=== PATIENT | female | born 2000 | race Caucasian/White ===

== ENCOUNTER 2018-11-16 21:03 | Emergency (ER) | payer OTHER ==
[2018-11-16 21:12] VITALS: BP 122/66; PULSE 100; TEMP 98; BMI 31.6
--- NOTE | 2018-11-16 21:46 | PDOC ---
History of Present Illness - General Chief Complaint: Allergic Reaction Stated Complaint: ALLERGIC REACTION Time Seen by Provider: 11/16/18 21:38 Past History - Past Medical History Allergies/Adverse Reactions: Allergies Allergy/AdvReac Type Severity Reaction Status Date / Time Fish Containing Products Allergy Verified 11/16/18 21:12 shellfish derived Allergy Verified 11/16/18 21:12 Home Medications: Ambulatory Orders NK [No Known Home Medication] 03/04/15 COPD: No - Immunization History Immunization Up to Date: Yes - Suicide/Smoking/Psychosocial Hx Smoking History: Unknown if ever smoked Have you smoked in the past 12 months: No Information on smoking cessation initiated: No Hx Alcohol Use: No Drug/Substance Use Hx: No Substance Use Type: None *Physical Exam - Vital Signs Last Vital Signs Temp Pulse Resp BP Pulse Ox 98.0 F 100 H 16 122/66 100 11/16/18 21:10 11/16/18 21:10 11/16/18 21:10 11/16/18 21:10 11/16/18 21:10
[2018-11-16] MEDS ORDERED: predniSONE 20 MG TABLET (UD) PO ONE (21:56)
--- NOTE | 2018-11-16 21:56 | PDOC ---
History of Present Illness - General Chief Complaint: Allergic Reaction Stated Complaint: ALLERGIC REACTION Time Seen by Provider: 11/16/18 21:38 History Source: Patient Exam Limitations: No Limitations - History of Present Illness Initial Comments: 11/16/18 21:49 18 yo female pmh of multiple allergies presents to the ED with redness, swelling and itching after handling fish products. Pt works as a business investor, states there may have been leakage from the bag and accidentally touched her face leading to itching, swelling and redness. Pt states she also became SOB with increased effort to breathe and anxiety which all subsided after 50mg PO benadryl however, the redness and itching to the face and chest persisted. Pt denies difficulty breathing, drooling, swallowing, swollen tongue or lips, CP, F /C/N/V. Past History - Past Medical History Allergies/Adverse Reactions: Allergies Allergy/AdvReac Type Severity Reaction Status Date / Time Fish Containing Products Allergy Verified 11/16/18 21:12 shellfish derived Allergy Verified 11/16/18 21:12 Home Medications: Ambulatory Orders Epinephrine [Epipen] 0.3 mg IJ PRN 1 Days #1 auto.injct 11/16/18 Methylprednisolone [Medrol Dose [place]] 4 mg PO ASDIR #21 tablet 11/16/18 Ranitidine HCl [Zantac] 150 mg PO DAILY 7 Days #7 tablet 11/16/18 COPD: No - Immunization History Immunization Up to Date: Yes - Suicide/Smoking/Psychosocial Hx Smoking History: Unknown if ever smoked Have you smoked in the past 12 months: No Information on smoking cessation initiated: No Hx Alcohol Use: No Drug/Substance Use Hx: No Substance Use Type: None *Physical Exam - Vital Signs Last Vital Signs Temp Pulse Resp BP Pulse Ox 98.0 F 100 H 16 122/66 100 11/16/18 21:10 11/16/18 21:10 11/16/18 21:10 11/16/18 21:10 11/16/18 21:10 *DC/Admit/Observation/Transfer Diagnosis at time of Disposition: Allergic reaction - Discharge Dispostion Disposition: HOME Condition at time of disposition: Stable Decision to Admit order: No - Referrals Referrals: Thiago Baltazar MD [Staff Physician] - - Patient Instructions Printed Discharge Instructions: DI for General Allergic Reactions Additional Instructions: Please see your primary doctor and make an appointment with the Supervisor [place] referred to you within the next 48 hours. Take the Medrol Dose Pack as prescribed along with Benadryl 50mg daily. deputy clerk of superior court your EPI PEN and use it as directed on the packaging if there is concern for trouble breathing at any point and then call 911 to go to the hospital. Also, return to the ER immediately for new or concerning symptoms including but not limited to: difficulty breathing, drooling, tongue swelling, swollen throat, high fevers. Thank you - Post Discharge Activity
[2018-11-16] MEDS ORDERED: RANITIDINE HCL 150 MG TABLET (FP) PO ONE (22:12)
[2018-11-16] MEDS ORDERED: predniSONE 20 MG TABLET (UD) ONE (22:15)
[2018-11-16] MEDS ORDERED: RANITIDINE HCL 150 MG TABLET (FP) ONE (22:37)
== END 2018-11-16 22:40 | disposition home or self-care (01) ==
LOC: JER 21:03
DX: T78.40XA Allergy, unspecified, initial encounter (principal)
CPT/HCPCS: 99282-25